=== PATIENT | female | born 1965 | race Caucasian/White ===

== ENCOUNTER → 2020-05-09 | Outpatient (CLI) | payer MEDICARE, MEDICAID ==
[~2020-05-09] MED LIST: ACET-168 PO; ALCA3DRO OU; BISA5TAB8 PO; CETI10TA17 PO; CLNZ.5T PO; CLON0.5T3 PO; DCS100C PO; DIAZ5TAB3 PO; DOXE10CA PO; Diazepam PO; ENXP40I.4 SC; GABA-486 PO; GABA100C PO; IBUP-15 PO; IBUP800T26 PO; LORA10TA76 PO; MELO-195 PO; MONT10TA21 PO; MONT10TA24 PO; MULT-974 PO; MUPI1OIN5 NS; ND-PRIM50T PO; ONDN4T PO; OXYC-465 PO; OXYC1TAB12 PO; PANT40TA PO; PNT40TEC PO; POLY17PO23 PO; PRAZ2CAP2 PO; PRIM50TA33 PO; QUET100T PO; QUET100T32 PO; QUET200T2 PO; RIZA10TA23 PO; TIZA4CAP PO; VANCADD1 IV
--- NOTE | 2020-05-09 12:23 | Diagnostic Imaging Report ---
INDICATION: Neck and shoulder pain. TIME OF EXAM: 11:04 a.m. EXAMINATION: AP, lateral, both oblique views as well as odontoid view were obtained of the cervical spine. FINDINGS: Curvature and alignment is normal. There is some mild generalized cervical spondylosis with variable disc space narrowing and marginal spurring. There is generalized facet arthropathy. No fractures are seen. Prevertebral tissues are normal. Odontoid is intact. IMPRESSION: Cervical spondylosis. No acute bony abnormality is detected. Dictated by: Dictated on workstation # [id number]
== END ==
LOC: ORTHO 09:38
PROVIDERS: ATTEND Orthopaedic Surgery
DX: M47.812 Spondylosis without myelopathy or radiculopathy, cervical region (principal)
CPT/HCPCS: 72050; G0463; 99203

== ENCOUNTER → 2020-07-02 | Outpatient (CLI) | payer MEDICARE, MEDICAID ==
--- NOTE | 2020-07-02 14:21 | Diagnostic Imaging Report ---
PROCEDURE: MR imaging cervical spine without contrast. TECHNIQUE: Multiplanar, multisequence MR imaging of the cervical spine was performed without contrast. INDICATION: Neck and shoulder pain. COMPARISON: No prior studies are available for comparison. FINDINGS: Curvature and alignment of the cervical spine is normal. Vertebral body marrow signal is normal. No geographic marrow lesion is seen. There is generalized degenerative disc disease with variable disc space narrowing and desiccation with marginal osteophyte formation. Cervical cord does show normal homogeneous signal intensity and normal morphology. Craniocervical junction is unremarkable. C2-C3: Central canal and neural foramina are widely patent. C3-C4: Endplate osteophytes indent the ventral thecal sac without central canal remains widely patent. Neural foramina are widely patent. C4-C5: Endplate osteophytes indent the ventral thecal sac. There is [id number] central canal stenosis. There is also moderate left and [id number] right neural foraminal stenosis. C5-C6: Broad-based disc/osteophyte complex indents the ventral thecal sac. Central canal remains patent but there is significant left and moderate right neural foraminal stenosis. C6-C7: Broad-based disc/osteophyte complex indents the ventral thecal sac. Central canal is patent. There is moderate left and mild right neural foraminal stenosis. C7-T1: Central canal and neural foramina are widely patent. Paraspinous tissues are unremarkable. IMPRESSION: Multilevel cervical spondylosis with multilevel central canal and neural foraminal stenosis described level by level above. Dictated by: Dictated on workstation # [id number]
== END ==
LOC: RAD 12:33
PROVIDERS: ATTEND Orthopaedic Surgery
DX: M47.812 Spondylosis without myelopathy or radiculopathy, cervical region (principal); M48.02 Spinal stenosis, cervical region
CPT/HCPCS: 72141

== ENCOUNTER → 2022-05-20 | Outpatient (CLI) | payer MEDICAID ==
--- NOTE | 2022-05-20 09:59 | Diagnostic Imaging Report ---
INDICATION: Bilateral wrist pain). History of carpal tunnel symptoms. Pain and numbness. TECHNIQUE: 2 views of the bilateral wrist CORRELATION STUDY: None FINDINGS: Bilateral ulnar minus variant is present. Radiocarpal rows appear unremarkable. No acute bony abnormality. No dislocation. The visualized soft tissues appearing unremarkable. IMPRESSION: 1. Negative examination of the wrist. Dictated by: Dictated on workstation # [id number]
== END ==
LOC: ORTHO 09:27
PROVIDERS: ATTEND Orthopaedic Surgery
DX: M25.531 Pain in right wrist (principal); M25.532 Pain in left wrist
CPT/HCPCS: 73100; G0463; 99213